=== PATIENT | female | born 1945 | race Two or more races ===

== ENCOUNTER 2023-05-24 22:01 | Inpatient (IN) | payer MEDICARE, OTHER ==
[~2023-05-24] VITALS: Ht 144.8 cm; Wt 62.6 kg
[2023-05-24] MEDS ORDERED: LIDOCAINE 5% (PATCH) 1 EA PATCH TP SCH (23:00)
[2023-05-24] MEDS ORDERED: ACETAMINOPHEN 325 MG TABLET PO ONE (23:00)
[2023-05-24] MEDS ORDERED: METHOCARBAMOL (750MG) 750 MG TABLET PO SCH (23:00)
[2023-05-24] MEDS ORDERED: LIDOCAINE 5% (PATCH) 1 EA PATCH TP ONE (23:16)
[2023-05-24] MEDS ORDERED: ACETAMINOPHEN 325 MG TABLET ONE (23:16)
[2023-05-24] MEDS ORDERED: METHOCARBAMOL (500MG) 500 MG TABLET ONE (23:16)
[2023-05-24] MEDS ORDERED: CT SWABBABLE VALVE TRANS SET 1 EA INFUS.SET MC ONE (23:23)
[2023-05-24] MEDS ORDERED: IOHEXOL-350 100 ML VIAL IV ONE (23:23)
[2023-05-24] MEDS ORDERED: IV NS 0.9% 250 ML IV ONE (23:23)
[2023-05-24 23:30] LABS: BASOPHILS % (AUTO) 0.3 % (0.0-2.0); EOSINOPHILS # (AUTO) 0.1 K/uL (0.0-0.7); HEMATOCRIT 41 % (33-45); HEMOGLOBIN 13.5 g/dL (11.5-14.8); LYMPHOCYTES # (AUTO) 1.4 K/uL (0.8-4.8); LYMPHOCYTES % (AUTO) 19.4 % (20.0-44.0); MEAN CORPUSCULAR HEMOGLOBIN 31 PG (26.0-33.0); MEAN CORPUSCULAR HGB CONC 33 g/dl (31.0-36.0); MEAN CORPUSCULAR VOLUME 92 fL (82-100); MONOCYTES # (AUTO) 0.5 K/uL (0.1-1.30); MONOCYTES % (AUTO) 6.9 % (2.0-12.0); NEUTROPHILS # (AUTO) 5.1 K/uL (1.8-8.9); NEUTROPHILS % (AUTO) 72.4 % (43.0-81.0); PLATELET COUNT (AUTO) 219 K/uL (150-450); RED BLOOD CELL COUNT(AUTO) 4.42 MIL/uL (4.0-5.2); RED CELL DISTRIBUTION WIDTH 14.9 % (11.5-15.0); WHITE BLOOD COUNT (AUTO) 7.1 K/uL (4.3-11.0)
[2023-05-24 23:34] LABS: CALCIUM, SERUM 9.4 mg/dL (8.5-10.1); CARBON DIOXIDE 26 mmol/L (21-32); CHLORIDE 99 mmol/L (98-107); CREATININE 0.6 mg/dL (0.6-1.3); GLUCOSE 109 mg/dL (74-106); SODIUM SERUM 134 mmol/L (136-145); UREA NITROGEN, BLOOD 8 mg/dL (7-18)
[2023-05-25] MEDS ORDERED: CT SWABBABLE VALVE TRANS SET 1 EA INFUS.SET MC ONE ×2 (00:21→15:56)
[2023-05-25] MEDS ORDERED: IOHEXOL-350 100 ML VIAL IV ONE (00:21)
[2023-05-25] MEDS ORDERED: IV NS 0.9% 250 ML IV ONE ×2 (00:21→15:56)
[2023-05-25] MEDS ORDERED: IV NS 0.9% 500 ML BAG IV ONE (02:00)
[2023-05-25] MEDS ORDERED: oxyCODONE/APAP (5/325 MG) 1 UDTAB TABLET PO ONE ×2 (02:00→11:00)
[2023-05-25] MEDS ORDERED: oxyCODONE/APAP (5/325 MG) 1 UDTAB TABLET ONE ×2 (02:17→10:53)
[2023-05-25] MEDS ORDERED: METHOCARBAMOL (500MG) 500 MG TABLET ONE (02:17)
[2023-05-25] MEDS ORDERED: KETOROLAC TROMETHAMINE 15 MG/ML VIAL IV ONE (06:30)
[2023-05-25] MEDS ORDERED: ACETAMINOPHEN 325 MG TABLET PO PRN (15:30)
[2023-05-25] MEDS ORDERED: ONDANSETRON HCL/PF 4 MG/2 ML VIAL IVP PRN (15:30)
[2023-05-25] MEDS: ENOXAPARIN SODIUM 40 MG/0.4 ML DISP.SYRIN SQ SCH (15:30)
[2023-05-25] MEDS ORDERED: Z GUARD REMEDY 4 OZ OINT TP PRN (15:30)
[2023-05-25] MEDS ORDERED: IOHEXOL-300 100 ML VIAL IV ONE (15:56)
[2023-05-25] MEDS: MORPHINE SULFATE INJ 2 MG/ML DISP.SYRIN IV PRN ×2 (16:53→21:05)
[2023-05-25 17:00] VITALS: BP 150/89; TEMP 97.9; O2SAT 96
[2023-05-25] MEDS: BACLOFEN (10 MG) 10 MG TABLET PO SCH (17:08)
[2023-05-25 17:10] LABS: THYROID STIMULATING HORMONE 2.649 uIU/mL (0.358-3.74)
[2023-05-25 20:00] VITALS: BP 134/82; TEMP 97.9; O2SAT 95
[2023-05-26 06:26] LABS: BASOPHILS % (AUTO) 0.4 % (0.0-2.0); EOSINOPHILS # (AUTO) 0.1 K/uL (0.0-0.7); EOSINOPHILS % (AUTO) 2.5 % (0.0-6.0); HEMATOCRIT 40 % (33-45); HEMOGLOBIN 13.2 g/dL (11.5-14.8); LYMPHOCYTES # (AUTO) 1.4 K/uL (0.8-4.8); LYMPHOCYTES % (AUTO) 25.2 % (20.0-44.0); MEAN CORPUSCULAR HEMOGLOBIN 31 PG (26.0-33.0); MEAN CORPUSCULAR HGB CONC 33 g/dl (31.0-36.0); MEAN CORPUSCULAR VOLUME 92 fL (82-100); MONOCYTES # (AUTO) 0.4 K/uL (0.1-1.30); MONOCYTES % (AUTO) 7.7 % (2.0-12.0); NEUTROPHILS # (AUTO) 3.5 K/uL (1.8-8.9); NEUTROPHILS % (AUTO) 64.2 % (43.0-81.0); PLATELET COUNT (AUTO) 202 K/uL (150-450); RED BLOOD CELL COUNT(AUTO) 4.32 MIL/uL (4.0-5.2); RED CELL DISTRIBUTION WIDTH 14.7 % (11.5-15.0); WHITE BLOOD COUNT (AUTO) 5.5 K/uL (4.3-11.0)
[2023-05-26 07:02] LABS: CALCIUM, SERUM 9.1 mg/dL (8.5-10.1); CREATININE 0.6 mg/dL (0.6-1.3); PHOSPHORUS 4.1 mg/dL (2.5-4.9)
[2023-05-26] MEDS: PANTOPRAZOLE 40 MG TABLET.DR PO SCH (07:56)
[2023-05-26 08:00] VITALS: BP 154/103; TEMP 97.9; O2SAT 94
[2023-05-26] MEDS: BACLOFEN (10 MG) 10 MG TABLET PO SCH ×3 (08:13→16:13)
[2023-05-26] MEDS: NICOTINE PATCH (21MG) 21 MG PATCH.TD24 TD SCH (08:13)
[2023-05-26] MEDS: MORPHINE SULFATE INJ 2 MG/ML DISP.SYRIN IV PRN ×4 (09:23→22:09)
[2023-05-26] MEDS ORDERED: IOHEXOL-300 100 ML VIAL IV ONE (15:02)
[2023-05-26] MEDS ORDERED: IV NS 0.9% 250 ML IV ONE (15:03)
[2023-05-26] MEDS: ENOXAPARIN SODIUM 40 MG/0.4 ML DISP.SYRIN SQ SCH (15:27)
[2023-05-26 16:14] VITALS: BP 125/91; TEMP 98.6; O2SAT 94
[2023-05-26 18:45] LABS: PROTHROMBIN TIME 10.6 SECS (9.2-11.1)
[2023-05-26 20:00] VITALS: BP 121/78; TEMP 98.3; O2SAT 94
[2023-05-27] MEDS: MORPHINE SULFATE INJ 2 MG/ML DISP.SYRIN IV PRN ×5 (04:41→21:12)
[2023-05-27 06:35] LABS: BASOPHILS % (AUTO) 0.4 % (0.0-2.0); EOSINOPHILS # (AUTO) 0.1 K/uL (0.0-0.7); EOSINOPHILS % (AUTO) 1.4 % (0.0-6.0); HEMATOCRIT 40 % (33-45); HEMOGLOBIN 13.1 g/dL (11.5-14.8); LYMPHOCYTES # (AUTO) 1.3 K/uL (0.8-4.8); LYMPHOCYTES % (AUTO) 20.1 % (20.0-44.0); MEAN CORPUSCULAR HEMOGLOBIN 30 PG (26.0-33.0); MEAN CORPUSCULAR HGB CONC 33 g/dl (31.0-36.0); MEAN CORPUSCULAR VOLUME 92 fL (82-100); MONOCYTES # (AUTO) 0.5 K/uL (0.1-1.30); MONOCYTES % (AUTO) 8.3 % (2.0-12.0); NEUTROPHILS # (AUTO) 4.4 K/uL (1.8-8.9); NEUTROPHILS % (AUTO) 69.8 % (43.0-81.0); PLATELET COUNT (AUTO) 210 K/uL (150-450); RED BLOOD CELL COUNT(AUTO) 4.35 MIL/uL (4.0-5.2); WHITE BLOOD COUNT (AUTO) 6.3 K/uL (4.3-11.0)
[2023-05-27 07:05] LABS: CARBON DIOXIDE 28 mmol/L (21-32); CHLORIDE 101 mmol/L (98-107); CREATININE 0.5 mg/dL (0.6-1.3); GLUCOSE 103 mg/dL (74-106); POTASSIUM 3.9 mmol/L (3.5-5.1); SODIUM SERUM 137 mmol/L (136-145); UREA NITROGEN, BLOOD 10 mg/dL (7-18)
[2023-05-27] MEDS: PANTOPRAZOLE 40 MG TABLET.DR PO SCH (07:30)
[2023-05-27] MEDS: BACLOFEN (10 MG) 10 MG TABLET PO SCH ×3 (08:33→17:03)
[2023-05-27] MEDS: NICOTINE PATCH (21MG) 21 MG PATCH.TD24 TD SCH (08:34)
[2023-05-27 08:38] VITALS: BP 129/90; TEMP 98.4; O2SAT 93
[2023-05-27 14:06] LABS: HEPATITIS B SURFACE AB Non Reactive (.)
[2023-05-27] MEDS: ENOXAPARIN SODIUM 40 MG/0.4 ML DISP.SYRIN SQ SCH (15:30)
[2023-05-27 16:18] VITALS: BP 121/80; TEMP 97.7; O2SAT 92
[2023-05-27 20:00] VITALS: BP_SYST 116; BP_SYST 122; BP_DIAS 75; BP_DIAS 84; TEMP 97.7; TEMP 98.4; O2SAT 100; O2SAT 95
[2023-05-28] MEDS: MORPHINE SULFATE INJ 2 MG/ML DISP.SYRIN IV PRN ×5 (01:34→22:25)
[2023-05-28 07:00] VITALS: BP 132/98; TEMP 99; O2SAT 94
[2023-05-28] MEDS: PANTOPRAZOLE 40 MG TABLET.DR PO SCH (07:30)
[2023-05-28] MEDS: NICOTINE PATCH (21MG) 21 MG PATCH.TD24 TD SCH (09:00)
[2023-05-28] MEDS: BACLOFEN (10 MG) 10 MG TABLET PO SCH ×3 (09:00→17:24)
[2023-05-28] MEDS ORDERED: LORAZEPAM INJ 2 MG/ML VIAL IV ONE (11:10)
[2023-05-28] MEDS: GABAPENTIN 100 MG CAPSULE PO SCH ×2 (13:33→17:24)
[2023-05-28] MEDS: ENOXAPARIN SODIUM 40 MG/0.4 ML DISP.SYRIN SQ SCH (15:30)
[2023-05-28 16:00] VITALS: BP 100/73; TEMP 98.8; O2SAT 95
[2023-05-28 20:00] VITALS: BP 123/74; TEMP 98.3; O2SAT 96
[2023-05-29] MEDS: MORPHINE SULFATE INJ 2 MG/ML DISP.SYRIN IV PRN ×5 (02:45→20:14)
[2023-05-29 07:00] VITALS: BP 109/78; TEMP 97.5; O2SAT 92
[2023-05-29] MEDS: NICOTINE PATCH (21MG) 21 MG PATCH.TD24 TD SCH (09:00)
[2023-05-29] MEDS: BACLOFEN (10 MG) 10 MG TABLET PO SCH ×4 (09:19→17:00)
[2023-05-29] MEDS: PANTOPRAZOLE 40 MG TABLET.DR PO SCH (09:19)
[2023-05-29] MEDS: GABAPENTIN 100 MG CAPSULE PO SCH ×3 (09:19→17:17)
[2023-05-29] MEDS: ENOXAPARIN SODIUM 40 MG/0.4 ML DISP.SYRIN SQ SCH (15:30)
[2023-05-29 16:00] VITALS: BP 119/92; TEMP 98.2; O2SAT 100
[2023-05-29 20:00] VITALS: BP 132/83; TEMP 97.5; O2SAT 95
[2023-05-30] MEDS: MORPHINE SULFATE INJ 2 MG/ML DISP.SYRIN IV PRN ×6 (00:47→20:44)
[2023-05-30 07:00] VITALS: BP 135/95; TEMP 97.8; O2SAT 90
[2023-05-30 07:17] LABS: BASOPHILS % (AUTO) 0.4 % (0.0-2.0); EOSINOPHILS # (AUTO) 0.1 K/uL (0.0-0.7); HEMATOCRIT 39 % (33-45); HEMOGLOBIN 13.1 g/dL (11.5-14.8); LYMPHOCYTES # (AUTO) 1.3 K/uL (0.8-4.8); MEAN CORPUSCULAR HEMOGLOBIN 31 PG (26.0-33.0); MEAN CORPUSCULAR HGB CONC 33 g/dl (31.0-36.0); MEAN CORPUSCULAR VOLUME 92 fL (82-100); MONOCYTES # (AUTO) 0.5 K/uL (0.1-1.30); MONOCYTES % (AUTO) 7.9 % (2.0-12.0); NEUTROPHILS # (AUTO) 4.2 K/uL (1.8-8.9); NEUTROPHILS % (AUTO) 68.7 % (43.0-81.0); PLATELET COUNT (AUTO) 187 K/uL (150-450); RED BLOOD CELL COUNT(AUTO) 4.26 MIL/uL (4.0-5.2); RED CELL DISTRIBUTION WIDTH 14.6 % (11.5-15.0); WHITE BLOOD COUNT (AUTO) 6.2 K/uL (4.3-11.0)
[2023-05-30 07:31] LABS: CALCIUM, SERUM 9.1 mg/dL (8.5-10.1); CREATININE 0.6 mg/dL (0.6-1.3); MAGNESIUM 1.9 mg/dL (1.8-2.4); PHOSPHORUS 3.7 mg/dL (2.5-4.9); POTASSIUM 4.1 mmol/L (3.5-5.1)
[2023-05-30] MEDS: PANTOPRAZOLE 40 MG TABLET.DR PO SCH (07:59)
[2023-05-30] MEDS: GABAPENTIN 100 MG CAPSULE PO SCH ×3 (08:00→17:00)
[2023-05-30] MEDS: NICOTINE PATCH (21MG) 21 MG PATCH.TD24 TD SCH (08:00)
[2023-05-30] MEDS: BACLOFEN (10 MG) 10 MG TABLET PO SCH ×3 (08:00→17:00)
[2023-05-30 12:00] VITALS: BP 110/67; TEMP 98; O2SAT 90
[2023-05-30] MEDS: ENOXAPARIN SODIUM 40 MG/0.4 ML DISP.SYRIN SQ SCH (15:12)
[2023-05-30 16:00] VITALS: BP 110/67; TEMP 98; O2SAT 90
[2023-05-30 20:33] VITALS: BP 137/82; TEMP 99.5; O2SAT 94
[2023-05-31] MEDS: MORPHINE SULFATE INJ 2 MG/ML DISP.SYRIN IV PRN ×7 (01:14→23:09)
[2023-05-31 06:18] LABS: BASOPHILS % (AUTO) 0.4 % (0.0-2.0); EOSINOPHILS # (AUTO) 0.1 K/uL (0.0-0.7); EOSINOPHILS % (AUTO) 1.3 % (0.0-6.0); HEMATOCRIT 38 % (33-45); HEMOGLOBIN 12.6 g/dL (11.5-14.8); LYMPHOCYTES # (AUTO) 1.1 K/uL (0.8-4.8); LYMPHOCYTES % (AUTO) 14.7 % (20.0-44.0); MEAN CORPUSCULAR HEMOGLOBIN 31 PG (26.0-33.0); MEAN CORPUSCULAR HGB CONC 33 g/dl (31.0-36.0); MEAN CORPUSCULAR VOLUME 92 fL (82-100); MONOCYTES # (AUTO) 0.5 K/uL (0.1-1.30); MONOCYTES % (AUTO) 7.4 % (2.0-12.0); NEUTROPHILS # (AUTO) 5.5 K/uL (1.8-8.9); NEUTROPHILS % (AUTO) 76.2 % (43.0-81.0); PLATELET COUNT (AUTO) 187 K/uL (150-450); RED BLOOD CELL COUNT(AUTO) 4.11 MIL/uL (4.0-5.2); RED CELL DISTRIBUTION WIDTH 14.5 % (11.5-15.0); WHITE BLOOD COUNT (AUTO) 7.2 K/uL (4.3-11.0)
[2023-05-31 06:27] LABS: INR 1.04 (0.91-1.10); PARTIAL THROMBOPLASTIN TIME 27.9 SEC (24.3-34.3)
[2023-05-31 06:41] LABS: CALCIUM, SERUM 9.1 mg/dL (8.5-10.1); CARBON DIOXIDE 30 mmol/L (21-32); CHLORIDE 97 mmol/L (98-107); CREATININE 0.5 mg/dL (0.6-1.3); GLUCOSE 111 mg/dL (74-106); MAGNESIUM 1.9 mg/dL (1.8-2.4); PHOSPHORUS 3.4 mg/dL (2.5-4.9); SODIUM SERUM 135 mmol/L (136-145); UREA NITROGEN, BLOOD 10 mg/dL (7-18)
[2023-05-31 07:00] VITALS: BP 136/84; TEMP 98.8; O2SAT 94
[2023-05-31] MEDS: PANTOPRAZOLE 40 MG TABLET.DR PO SCH (07:30)
[2023-05-31] MEDS: GABAPENTIN 100 MG CAPSULE PO SCH ×3 (08:51→16:24)
[2023-05-31] MEDS: BACLOFEN (10 MG) 10 MG TABLET PO SCH ×3 (08:51→16:24)
[2023-05-31] MEDS: NICOTINE PATCH (21MG) 21 MG PATCH.TD24 TD SCH (08:51)
[2023-05-31] MEDS: LORAZEPAM 0.5 MG TABLET PO PRN (10:48)
[2023-05-31] MEDS ORDERED: NALOXONE PREFILLED SYRINGE 2 MG/2 ML SYRINGE IV PRN (13:30)
[2023-05-31] MEDS ORDERED: MIDAZOLAM HCL 2 MG/2ML VIAL IV PRN (13:30)
[2023-05-31] MEDS ORDERED: FLUMAZENIL 0.5 MG VIAL IV PRN (13:30)
[2023-05-31] MEDS ORDERED: FENTANYL PF 250MCG/5ML AMPUL IV PRN (13:30)
[2023-05-31] MEDS: ENOXAPARIN SODIUM 40 MG/0.4 ML DISP.SYRIN SQ SCH (15:30)
[2023-05-31 16:00] VITALS: BP 121/76; TEMP 98.7; O2SAT 94
[2023-05-31 20:00] VITALS: BP 125/74; TEMP 98.6; O2SAT 93
[2023-06-01] MEDS: MORPHINE SULFATE INJ 2 MG/ML DISP.SYRIN IV PRN ×5 (02:16→17:30)
[2023-06-01 06:52] LABS: BASOPHILS % (AUTO) 0.5 % (0.0-2.0); EOSINOPHILS # (AUTO) 0.1 K/uL (0.0-0.7); EOSINOPHILS % (AUTO) 1.9 % (0.0-6.0); HEMATOCRIT 37 % (33-45); HEMOGLOBIN 12.4 g/dL (11.5-14.8); LYMPHOCYTES # (AUTO) 1.1 K/uL (0.8-4.8); LYMPHOCYTES % (AUTO) 18.9 % (20.0-44.0); MEAN CORPUSCULAR HEMOGLOBIN 31 PG (26.0-33.0); MEAN CORPUSCULAR HGB CONC 33 g/dl (31.0-36.0); MEAN CORPUSCULAR VOLUME 92 fL (82-100); MONOCYTES # (AUTO) 0.5 K/uL (0.1-1.30); MONOCYTES % (AUTO) 8.4 % (2.0-12.0); NEUTROPHILS # (AUTO) 4.1 K/uL (1.8-8.9); NEUTROPHILS % (AUTO) 70.3 % (43.0-81.0); PLATELET COUNT (AUTO) 189 K/uL (150-450); RED BLOOD CELL COUNT(AUTO) 4.08 MIL/uL (4.0-5.2); RED CELL DISTRIBUTION WIDTH 14.4 % (11.5-15.0); WHITE BLOOD COUNT (AUTO) 5.9 K/uL (4.3-11.0)
[2023-06-01 07:00] LABS: CALCIUM, SERUM 8.9 mg/dL (8.5-10.1); CARBON DIOXIDE 31 mmol/L (21-32); CHLORIDE 98 mmol/L (98-107); CREATININE 0.5 mg/dL (0.6-1.3); GLUCOSE 104 mg/dL (74-106); MAGNESIUM 2.1 mg/dL (1.8-2.4); PHOSPHORUS 4.1 mg/dL (2.5-4.9); POTASSIUM 3.9 mmol/L (3.5-5.1); SODIUM SERUM 134 mmol/L (136-145); UREA NITROGEN, BLOOD 9 mg/dL (7-18)
[2023-06-01 08:00] VITALS: BP 111/78; TEMP 97.7; O2SAT 94
[2023-06-01] MEDS: PANTOPRAZOLE 40 MG TABLET.DR PO SCH (08:33)
[2023-06-01] MEDS: GABAPENTIN 100 MG CAPSULE PO SCH ×3 (08:42→17:00)
[2023-06-01] MEDS: BACLOFEN (10 MG) 10 MG TABLET PO SCH ×3 (08:42→17:00)
[2023-06-01] MEDS: NICOTINE PATCH (21MG) 21 MG PATCH.TD24 TD SCH (08:43)
[2023-06-01] MEDS: LORAZEPAM 0.5 MG TABLET PO PRN (10:06)
[2023-06-01] MEDS ORDERED: BISACODYL SUPP (10 MG) 10 MG/SUPP.RECT SUPP.RECT RC PRN (13:00)
[2023-06-01] MEDS: POLYETHYLENE GLYCOL 3350 17 GM POWD.PACK PO PRN ×2 (13:06→18:38)
[2023-06-01] MEDS ORDERED: dexaMETHasone SOD PHOSPHATE 10 MG/ML VIAL IV ONE (15:00)
[2023-06-01] MEDS: ENOXAPARIN SODIUM 40 MG/0.4 ML DISP.SYRIN SQ SCH (15:34)
[2023-06-01] MEDS ORDERED: PANT40TA49 PO (15:51)
[2023-06-01] MEDS ORDERED: POLY17PO29 PO (15:51)
[2023-06-01] MEDS ORDERED: Morphine Sulfate Inj IV (15:51)
[2023-06-01] MEDS ORDERED: DEXA4VIA17 IV (15:51)
[2023-06-01] MEDS ORDERED: GABA100C PO (15:51)
[2023-06-01 16:00] VITALS: BP 135/80; TEMP 98.4; O2SAT 92
[2023-06-01] MEDS ORDERED: dexaMETHasone SOD PHOSPHATE 4 MG/ML VIAL IV SCH (18:00)
[2023-06-02] MEDS ORDERED: dexaMETHasone SOD PHOSPHATE 4 MG/ML VIAL IV SCH (09:00)
== END 2023-06-01 19:40 | disposition short-term general hospital (02) | DRG 180 ==
LOC: ER 22:03 → MED 05-25 15:16
PROVIDERS: ADMIT Nurse Practitioner Acute Care; ATTEND Nurse Practitioner Acute Care
PROC: 0BBC3ZX Excision of Right Upper Lung Lobe, Percutaneous Approach, Diagnostic (ICD-10-PCS; principal; 2023-05-31)
DX: C34.11 Malignant neoplasm of upper lobe, right bronchus or lung (principal); G95.19 Other vascular myelopathies; C79.51 Secondary malignant neoplasm of bone; I87.1 Compression of vein; E87.1 Hypo-osmolality and hyponatremia; G95.29 Other cord compression; M62.838 Other muscle spasm; M19.90 Unspecified osteoarthritis, unspecified site; K80.20 Calculus of gallbladder without cholecystitis without obstruction; K74.60 Unspecified cirrhosis of liver; I25.10 Atherosclerotic heart disease of native coronary artery without angina pectoris; I10 Essential (primary) hypertension; Z88.2 Allergy status to sulfonamides; Z85.118 Personal history of other malignant neoplasm of bronchus and lung; R59.0 Localized enlarged lymph nodes; F41.9 Anxiety disorder, unspecified; E27.8 Other specified disorders of adrenal gland; I65.22 Occlusion and stenosis of left carotid artery; F17.210 Nicotine dependence, cigarettes, uncomplicated; K57.90 Diverticulosis of intestine, part unspecified, without perforation or abscess without bleeding; N28.1 Cyst of kidney, acquired
CPT/HCPCS: 36415; 70496-TC; 70498-TC; 71045-TC; 71270-TC; 72141-TC; 76770-TC; 80048-TC; 80061-TC; 82378; 83540-TC; 83615-TC; 83735-TC; 84100-TC; 84443-TC; 84484-TC; 85025-TC; 85610-TC; 85730-TC; 86706; 86803; 87340; 97110-TC; 97112-TC; 97116-TC; 97530-TC; A4223; G0378; J1100; J1650; J2250; J2270; J3010; J7040; J7050; Q9967